=== PATIENT | female | born 1955 | race Two or more races ===

== ENCOUNTER 2023-10-26 17:30 | Emergency (ER) | payer OTHER ==
[~2023-10-26] VITALS: Ht 165.1 cm; Wt 75.0 kg
[2023-10-26 17:39] VITALS: TEMP 98.6
[2023-10-26] MEDS ORDERED: METF-1211 PO (17:44)
[2023-10-26] MEDS ORDERED: LEVO50 PO (17:44)
[2023-10-26] MEDS ORDERED: FAMO20 PO (17:44)
[2023-10-26] MEDS ORDERED: AMOX500C2 PO (19:50)
[2023-10-26] MEDS ORDERED: OXYC-26 PO (19:50)
[2023-10-26] MEDS: OxyCODONE HCL 5 MG IR TABLET PO ONE (20:28)
[2023-10-26] MEDS: AMOXICILLIN TRIHYDRATE 250 MG CAPSULE PO ONE (20:29)
[2023-10-26 20:30] VITALS: BP 129/77; PULSE 65; RESP 16; O2SAT 99
== END 2023-10-26 21:59 | disposition home or self-care (01) ==
LOC: EMS 17:30
DX: K08.89 Other specified disorders of teeth and supporting structures (principal); E03.9 Hypothyroidism, unspecified; E11.9 Type 2 diabetes mellitus without complications; Z90.49 Acquired absence of other specified parts of digestive tract; Z88.8 Allergy status to other drugs, medicaments and biological substances
CPT/HCPCS: 82962; 99283

== ENCOUNTER 2023-12-02 12:38 | Emergency (ER) | payer OTHER, MEDICAID ==
[~2023-12-02 12:38] MED LIST: AMOX500C2 PO; FAMO20 PO; LEVO50 PO; METF-1211 PO; OXYC-26 PO
[2023-12-02] MEDS ORDERED: METF-1211 PO (12:46)
[2023-12-02] MEDS ORDERED: VITAMIN D PO (12:46)
[2023-12-02] MEDS ORDERED: FERR325T27 PO (12:46)
[2023-12-02] MEDS ORDERED: OXYC-26 PO (13:25)
[2023-12-02] MEDS ORDERED: AMOX500C2 PO (13:25)
[2023-12-02 13:38] VITALS: BP 108/65; PULSE 48; RESP 18; TEMP 98; O2SAT 100
== END 2023-12-02 13:44 | disposition home or self-care (01) ==
LOC: EMS 12:38
DX: K04.7 Periapical abscess without sinus (principal); E11.9 Type 2 diabetes mellitus without complications; E03.9 Hypothyroidism, unspecified; Z90.49 Acquired absence of other specified parts of digestive tract; Z88.6 Allergy status to analgesic agent; Z88.5 Allergy status to narcotic agent
CPT/HCPCS: 99283; Z7502

== ENCOUNTER 2024-01-02 12:53 | Emergency (ER) | payer OTHER, MEDICAID ==
[~2024-01-02] VITALS: Ht 157.5 cm; Wt 68.2 kg
[~2024-01-02 12:53] MED LIST changes: -FAMO20 PO; +FERR325T27 PO; -LEVO50 PO; +VITAMIN D PO
[2024-01-02 12:59] VITALS: TEMP 98.4
[2024-01-02] MEDS: HYDROCODONE/ACETAMINOPHEN 5-325 MG TABLET PO ONE (14:51)
[2024-01-02] MEDS: AMOXICILLIN TRIHYDRATE 250 MG CAPSULE PO ONE (14:51)
[2024-01-02] MEDS ORDERED: AMOX500C2 PO (14:54)
[2024-01-02] MEDS ORDERED: OXYC-26 PO (14:54)
[2024-01-02 15:00] VITALS: BP 124/70; PULSE 62; RESP 16; O2SAT 100
== END 2024-01-02 15:08 | disposition home or self-care (01) ==
LOC: EMS 12:54
DX: K08.89 Other specified disorders of teeth and supporting structures (principal); E11.9 Type 2 diabetes mellitus without complications; E03.9 Hypothyroidism, unspecified; Z88.5 Allergy status to narcotic agent; Z88.6 Allergy status to analgesic agent
CPT/HCPCS: 82962; 99283

== ENCOUNTER 2024-01-29 18:35 | Emergency (ER) | payer OTHER, MEDICAID ==
[~2024-01-29] VITALS: Ht 162.6 cm; Wt 71.4 kg
[2024-01-29 18:43] VITALS: TEMP 96.9
[2024-01-29] MEDS ORDERED: HYDR-4062 PO (19:32)
[2024-01-29 20:10] VITALS: BP 122/52; PULSE 74; RESP 18; O2SAT 99
== END 2024-01-29 20:18 | disposition home or self-care (01) ==
LOC: EMS 18:35
DX: K08.89 Other specified disorders of teeth and supporting structures (principal); E03.9 Hypothyroidism, unspecified; E11.9 Type 2 diabetes mellitus without complications; Z88.5 Allergy status to narcotic agent; Z88.6 Allergy status to analgesic agent
CPT/HCPCS: 99283; Z7502